=== PATIENT | male | born 1955 | race Caucasian/White ===

== ENCOUNTER 2016-10-10 07:58 | Inpatient (IN) ==
[2016-10-10] MEDS ORDERED: *HR* Propofol 200 MG/20 ML VIAL IVP ONE (07:59)
--- NOTE | 2016-10-10 08:29 | Anesthesia Evaluation PreOp ---
Date of Encounter: 10/10/16 Time of Encounter: 08:25 - Past History Planned Operation: TURP Cardiac History: HTN, Hyperlipidemia Pulmonary History: Denies Any Significant HX PHLEBOTOMIST MEDICAL LAB ASSISTANT History: Denies Any Significant HX Other Medical History: Hepatic (Hx Hep C resolved), Other (Anxiety) Anesthesia History: No Prior Anesthetic Complications Alcohol Use: none Drug use: none Medications and Allergies Allergies No Known Allergies Allergy (Unverified 09/26/16 11:07) - Meds/Allergy Pre-op Review Medications Reviewed: Yes Allergies Reviewed: Yes Beta Blockers on Current Med List: No Anesthesia Results - Labs Laboratory Tests 09/26/16 09/26/16 10:00 10:00 Hgb 14.6 Hct 43.9 Plt Count 183 BUN 23 Creatinine 1.09 - Imaging EKG: report reviewed (SR) Anesthesia Exam O2 Sat Height 1.6 m Height 1.6 m Weight 77.564 kg Weight 77.564 kg O2 Sat by Pulse Oximetry 95 Vital Signs Temp Pulse Resp BP Pulse Ox 97.6 F 61 18 129/89 95 10/10/16 08:14 10/10/16 08:14 10/10/16 08:14 10/10/16 08:14 10/10/16 08:14 Height: 5'3 Weight: 171 lbs NPO (# of Hours): MN Pain Scale: 0 - HEENT Pupil (Motor): Pupils equal, EOMI Mallampati: II Teeth: Normal Oral Opening: Greater than 3 - PHLEBOTOMIST MEDICAL LAB ASSISTANT LOC: Oriented PHLEBOTOMIST MEDICAL LAB ASSISTANT Motor: Normal RUE, Normal LUE, Normal RLE, Normal LLE, Normal Face PHLEBOTOMIST 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
[2016-10-10] MEDS ORDERED: CeFAZolin Pre 2,000 MG/100 ML 2,000 MG/100 ML BAG IVPB ONE (08:38)
[2016-10-10] MEDS ORDERED: Ringers Solution, Lactated 1,000 ML IVC SCH (08:45)
--- NOTE | 2016-10-10 08:59 | History & Physical Report ---
Date of Encounter: 10/10/16 Time of Encounter: 08:59 24 Hour HP Update - Instructions Instructions: If the History and Physical is less than 30 days old and was completed prior to A.M. admission and or procedure and has NOT been updated on calendar day of procedure please complete this update prior to performing procedure. - Update Patient reports changes in Medical Condition: No Changes in examination, assessment, or condition: No Changes in Medication: No Preop tests/diagnostics Reviewed: Yes Surgery Remains Indicated: Yes Consent for Planned Operative Procedure(s) Verified: Yes - Pre-Operative Checklist Preoperative Checklist Indicated: Yes Prophylactic Antibiotic Ordered: Yes Home Medications Include Beta Mulugeta: No Is VTE Prophylaxis Indicated?: Yes
[2016-10-10] MEDS ORDERED: Acetaminophen IV 1,000 MG/100 ML INFUS..BTL ONE (09:04)
[2016-10-10] MEDS ORDERED: Acetaminophen IV 1,000 MG/100 ML INFUS..BTL IVPB ONE (09:09)
[2016-10-10] MEDS ORDERED: Famotidine 20 MG/2 ML VIAL IVP ONE (09:09)
[2016-10-10] MEDS ORDERED: *HR* FentaNYL (PF) 100 MCG/2 ML VIAL ONE (09:15)
[2016-10-10] MEDS ORDERED: Lidocaine -MPF 2% 2 ML VIAL ONE (09:16)
[2016-10-10] MEDS ORDERED: *HR* Promethazine 25 MG/ML VIAL IVP PRN (09:23)
[2016-10-10] MEDS ORDERED: *HR* Labetalol 20 MG/4 ML SYRINGE IVP PRN (09:23)
[2016-10-10] MEDS ORDERED: Ondansetron 4 MG/2 ML VIAL IVP ONE (09:23)
[2016-10-10] MEDS ORDERED: Dexamethasone 4 MG/ML VIAL ONE (09:42)
[2016-10-10] MEDS ORDERED: Ondansetron 4 MG/2 ML VIAL ONE (09:42)
--- NOTE | 2016-10-10 10:24 | Operative Note ---
Date of procedure: 10/10/16 Pre-op diagnosis: BPH, incomplete bladder emptying Post-op diagnosis: same Procedure: TURP Implants: [address] Complications: none Anesthesia: BRENDAA Surgeon: Vipin Garvey Estimated blood loss (cc): 200 Specimen: prostate chips Condition: stable Disposition: PACU Procedure in Detail: INDICATIONS: Giovanny is a 61 year old gentleman, who has BPH and is incomplete bladder emptying. He also has a history of a bladder diverticulum. He has continued urinary symptoms despite being on medications. He wished to undergo a transurethral resection of prostate. He is aware of the risks of procedure including, but not limited to, bleeding, infection, injury to other structures, need for further procedures, incomplete bladder emptying, bladder neck contracture, urethral stricture, urinary incontinence, retrograde ejaculation, erectile dysfunction, and the risk of anesthesia. He is willing to proceed. DESCRIPTION OF PROCEDURE: After informed consent was obtained, the patient was brought back to the operating room and placed in supine position. Time-out was performed. General anesthesia was then administered and a laryngeal mask airway was placed. He was then placed in lithotomy position. His genitalia were prepped and draped in usual sterile fashion. The resector sheath was then introduced using the visual obturator to the urethra. The prostate showed lateral lobe hyperplasia. There was some enlargement of the median lobe. The bladder neck was high riding. The ureteral orifices were in the normal orthotopic position. There is no bladder tumor. There were 3+ trabeculations. There was a diverticulum located near the right ureteral orifice. I then inserted the Ferguson element with the Lopez knife. An incision was made at the 5:00 and 7:00 regions from the bladder neck down to the verumontanum. The Lopez knife was removed and the resecting loop was then introduced. The median lobe was taken down using electrocautery down to the level of the verumontanum. I then turned my attention to the left lateral lobe and this was resected away. Attention was then turned to the right lobe and this was resected away. I encountered a sinus along the left side. There was a fair amount of venous bleeding from this location. I was able to complete the resection. I did perform a small amount of resection anteriorly as well. Once adequate resection was achieved, I then achieved hemostasis with electrocautery. All arterial bleeders were well controlled. The sinus along the left side of the prostate was fulgurated. All the TURP chips were irrigated out. I then confirmed hemostasis again. I surveyed the bladder to make sure there is no residual prostate chips in the diverticulum. Once hemostasis was adequate, I removed the scope. The verumontanum and ureteral orifices were free of injury and left intact. A 24-Georgian three-way catheter was then placed , 60 mL was instilled in the balloon. The catheter was left on mild traction. Slow continuous bladder irrigation was started. The patient was then awakened from general anesthesia, brought to recovery room in good condition. All sponge, needle, and instrument counts were correct.
[2016-10-10] MEDS: *HR* HYDROmorphone (PF) 1 MG/ML SYRINGE IVP PRN ×4 (10:25→10:48)
--- NOTE | 2016-10-10 11:07 | Anesthesia Evaluation Post Op ---
Date of Encounter: 10/10/16 Time of Encounter: 11:06 - Vital Signs Vital Signs: Vital Signs/O2 Sat, Most Current Temp Pulse Resp BP Pulse Ox 97.5 F L 67 16 132/95 95 10/10/16 10:47 10/10/16 10:47 10/10/16 10:47 10/10/16 10:47 10/10/16 10:47 - Lungs Lungs: Clear Ascult./Percussion - Airway Airway: Non-obstructed - Cardiovascular Regular Rate - Mental Status Mental Status: Alert & Oriented, Answers Appropriately - Pain Pain Scale: 5 Pain Scale used: Numeric (1 - 10) - Nausea Vomiting Nausea Vomiting: Not Present - Hydration Hydration: Ice chips, Malcolm catheter - Discharge PostOp Status: Transfer Patient to floor
[2016-10-10] MEDS ORDERED: Acetaminophen 325 MG TABLET PO PRN (11:44)
[2016-10-10] MEDS ORDERED: *HR* HYDROmorphone (PF) 1 MG/ML SYRINGE IVP PRN (11:44)
[2016-10-10] MEDS ORDERED: Naloxone 0.4 MG/ML INJ IVP PRN (11:44)
[2016-10-10] MEDS ORDERED: Ondansetron 4 MG/2 ML VIAL IVP PRN (11:44)
[2016-10-10] MEDS ORDERED: *HR* HYDROcodone/Acet 5/325 mg TABLET PO PRN (11:44)
[2016-10-10] MEDS: 0.9 % Sodium Chloride 1,000 ML IVC SCH (16:10)
[2016-10-11] MEDS: 0.9 % Sodium Chloride 1,000 ML IVC SCH ×2 (00:46)
[2016-10-11 03:03] LABS: Hematocrit 38.6 % (37.5-50.1)
[2016-10-11 04:12] VITALS: BP 123/81
--- NOTE | 2016-10-11 07:40 | Discharge Summary ---
Date of Encounter: 10/11/16 Time of Encounter: 07:38 - Discharge Diagnosis (1) BPH (benign prostatic hypertrophy) with urinary obstruction Priority: Primary Status: Resolved - Discharge Medications Prescriptions: HYDROcodone/Acet 5/325 mg [Clyde 5-325 mg] 2 tab PO Q4HR PRN #10 tablet PRN Reason: Moderate pain 4-6 Phenazopyridine HCl [Pyridium] 200 mg PO TIDAC PRN #20 tab PRN Reason: burning with urination Home Medications: Capsaicin 0.025% [Trixaicin] 1 appl TP TID PRN 10/10/16 [History] Cholecalciferol (D-3) [Vitamin D] 1,000 unit PO DAILY 10/10/16 [History] Divalproex Sodium [Depakote] 250 mg PO HS 10/10/16 [History] Finasteride [Proscar] 5 mg PO DAILY 10/10/16 [History] Gabapentin [Neurontin] 100 mg PO TID 10/10/16 [History] Lactobacillus Acidophilus [Acidophilus Lactobacillus] 1 each PO DAILY 10/10/16 [ History] amLODIPine [Norvasc] 5 mg PO DAILY 10/10/16 [History] HYDROcodone/Acet 5/325 mg [Clyde 5-325 mg] 2 tab PO Q4HR PRN #10 tablet [Rx] Phenazopyridine HCl [Pyridium] 200 mg PO TIDAC PRN #20 tab 10/11/16 [Rx] Allergies/Adverse Reactions: Allergies No Known Allergies Allergy (Verified 10/10/16 10:38) Labs on day of discharge: Labs from last 24 hours 10/11/16 02:43 Hgb 13.0 Hct 38.6 Date of admission: 10/10/16 11:07 [facility] care [facility]: [facility] Consults: 10/10/16 12:47 Consult to City Planning Aide [CONS] Routine Reason for SW Consult: would like advance directives Discharging clinician: Anselmo Roy Anticipated date of discharge: 10/11/16 - Patient Status Disposition: Home, Self-Care Condition: Good Functional capacity at discharge: independent ambulation Overall status at discharge: patient is progressing back to baseline - Discharge Instructions Follow Up With: [facility],PC[facility] [Primary Care Provider] - Additional Instructions: Strictly avoid heavy lifting, heavy activity and straining at least until follow -up appointment Hold aspirin until follow-up appointment Expected urgency, frequency, burning, light blood in the urine, small clots or debris. Call if excessive. Call if unable to urinate. Call if fever over 101 - Diet and Activity Activity: other Diet: advance to your usual diet - Hospital Course Hospital course: Mr. Tomlinson is a 61 year old male postoperative day #1 status post TURP. Urine clear overnight. Plan to remove catheter and start voiding trial. Plan to discharge today if able to void. Vital stable overnight - Time Spent with Patient Total time spent providing and/or coordinating discharge services: Exam Initial Vital Signs Temp Pulse Resp BP Pulse Ox 97.6 F 61 18 129/89 95 10/10/16 08:14 10/10/16 08:14 10/10/16 08:14 10/10/16 08:14 10/10/16 08:14 - General physical appearance Present: well developed, no distress - Additional Findings Urine clear on slow drip - VTE Documentation of Mechanical Device: Intermittent pneumatic compression device
[2016-10-11] MEDS ORDERED: levoFLOXacin 500 MG TABLET PO SCH (09:00)
== END 2016-10-11 11:25 | disposition home or self-care (01) | DRG 714 ==
LOC: SAMDAY 07:58 → 3BNU 11:07
PROVIDERS: ADMIT Urology; ATTEND Urology
PROC: UROTURP (2016-10-10 09:35)